=== PATIENT | female | born 1965 | race African-American/Black ===

== ENCOUNTER → 2020-12-10 | Outpatient (CLI) | payer OTHER ==
[~2020-12-10] MED LIST: AMLO-257 PO; EMPA10TA PO; LIRA0.6P SQ; LOSA25TA21 PO; METF-960 PO
== END | disposition home or self-care (01) ==
LOC: RADMN 15:58
PROVIDERS: ATTEND Internal Medicine
DX: R76.11 Nonspecific reaction to tuberculin skin test without active tuberculosis (principal); M41.84 Other forms of scoliosis, thoracic region
CPT/HCPCS: 71045

== ENCOUNTER 2020-12-12 14:01 | Emergency (ER) | payer MEDICAID ==
[~2020-12-12] VITALS: Ht 172.7 cm; Wt 95.9 kg
[2020-12-12 14:34] VITALS: BP 144/98
[2020-12-12] MEDS ORDERED: EMPA10TA PO (14:40)
[2020-12-12] MEDS ORDERED: METF-960 PO (14:40)
[2020-12-12] MEDS ORDERED: LIRA0.6P SQ (14:40)
[2020-12-12] MEDS ORDERED: AMLO-257 PO (14:40)
[2020-12-12] MEDS ORDERED: LOSA25TA21 PO (14:40)
[2020-12-12] MEDS ORDERED: HYDROCODONE/ACETAMINOPHEN 5-325 MG TABLET PO ONE (15:00)
[2020-12-12] MEDS ORDERED: IBUPROFEN 600 MG TABLET PO ONE (15:00)
== END 2020-12-12 15:20 | disposition home or self-care (01) ==
LOC: EMS 14:01
DX: M71.21 Synovial cyst of popliteal space [Baker], right knee (principal); M71.22 Synovial cyst of popliteal space [Baker], left knee; E11.9 Type 2 diabetes mellitus without complications; I10 Essential (primary) hypertension; Z79.84 Long term (current) use of oral hypoglycemic drugs
CPT/HCPCS: 82962; 99283